=== PATIENT | female | born 1975 | race Caucasian/White ===

== ENCOUNTER 2021-01-06 18:18 | Emergency (ER) | payer OTHER, SELFPAY ==
[2021-01-06 18:25] VITALS: BP 140/88; PULSE 91; RESP 18; TEMP 36.6; O2SAT 99; BMI 30.7
--- NOTE | 2021-01-06 19:34 | ED.ANXIETY ---
HPI - Anxiety General Chief Complaint: Anxiety Stated Complaint: vomiting Time Seen by Provider: 01/06/21 19:34 Source: patient Mode of arrival: ambulatory Limitations: no limitations History of Present Illness HPI narrative: Patient has increased anxiety and stress recent break-up very anxious when she eats anything nauseated with epigastric pain with history of GERD in the past denies any urinary complaints Related Data Previous Rx's Medication Instructions Recorded ouoazsvhtf-pmbuecfniztuc-ougygwqb 1 cap PO Q6H PRN #20 cap 01/06/21 50 mg-300 mg-40 mg capsule (Fioricet) lorazepam 1 mg tablet (Ativan) 1 mg PO BEDTIME PRN #10 tab 01/06/21 omeprazole 40 mg capsule,delayed 40 mg PO DAILY #20 cap 01/06/21 release Allergies Allergy/AdvReac Type Severity Reaction Status Date / Time Penicillins [PENICILLINS] Allergy Unknown UNKNOWN Verified 01/06/21 20:07 Review of Systems Review of Systems: Yes all other systems are reviewed and are negative PMFSH Past Medical History Medical History No known health problems Social History Social History Advance Directives: No Advance Directives Information Provided: No Patient : No Physical Exam Vital Signs: Vital Signs: Last Vital Signs Temp 98 F 01/06/21 18:25 Pulse 91 01/06/21 18:25 Resp 18 01/06/21 18:25 BP 140/88 H 01/06/21 18:25 Pulse Ox 99 01/06/21 18:25 Body Mass Index 30.7 Appearance: Alert. Oriented X3. No acute distress. Anxious Eyes: No pallor or icterus ENT: Pharynx normal. Oral Mucosa moist Neck: Normal inspection. Neck supple. CVS: Normal heart rate and rhythm. Pulses normal. Respiratory: No respiratory distress. Equal air entry bilateral, Abdomen: Soft and mild epigastric tenderness. Bowel sounds are present, no mass palpable, no CVA tenderness Skin: Skin warm and dry. Normal skin color. Normal skin turgor. Extremities: No lower extremity edema. No calf tenderness Neuro: Oriented X 3. MDM - Anxiety Lab Data Attestation: I reviewed the patient's lab results. Labs: Lab Results 01/06/21 01/06/21 Range/Units 20:33 20:33 Urine Color STRAW Urine Appearance CLEAR Urine pH 6.0 (5.0-8.0) Ur Specific [place] <= 1.005 (1.005-1.025) Urine Protein NEG (NEG-TRACE) MG/DL Urine Glucose (UA) NEG (NEG) MG/DL Urine Ketones NEG (NEG) MG/DL Urine Blood NEG (NEG) Urine Nitrite NEG (NEG) Ur Leukocyte Esterase NEG (NEG) Urine Test NEGATIVE (NEGATIVE) Discharge Plan Discharge Clinical Impression: Acute anxiety Patient Disposition: Home, Self-Care Instructions: Gastroesophageal Reflux Disease (ED), Anxiety (ED) Additional Instructions: Rest at home Drink plenty of fluids Take medication for headache Prescriptions: New omeprazole 40 mg capsule,delayed release(DR/EC) 40 mg PO DAILY Qty: 20 RF: 0 lorazepam [Ativan] 1 mg tablet 1 mg PO BEDTIME PRN (Reason: anxiety) Qty: 10 RF: 0 zabeodmqnc-fhrklcusnwlpt-coco [Fioricet] 50-300-40 mg capsule 1 cap PO Q6H PRN (Reason: headache) Qty: 20 RF: 0
[2021-01-06] MEDS: Ondansetron ODT 4 MG TAB.RAPDIS TRANSLINGU (20:06)
[2021-01-06 20:41] LABS: Appearance Urine CLEAR; Color Urine STRAW; Glucose Urine UA NEG (NEG); Leukocyte Esterase Urine NEG (NEG); Nitrite Urine NEG (NEG); Specific Gravity - Urine <= 1.005 (1.005-1.025); Urine Blood NEG (NEG); Urine Ketones NEG (NEG); Urine Protein NEG (NEG-TRACE)
[2021-01-06] MEDS: Acetaminophen 325 MG TABLET 650 MG PO (20:42)
[2021-01-06 20:44] LABS: UPreg QC Valid YES; Urine Pregnancy NEGATIVE (NEGATIVE)
[2021-01-06] MEDS: LORazepam 1 MG TABLET PO (20:51)
[2021-01-06] MEDS: Omeprazole 40 MG CAPSULE.DR PO (20:51)
--- NOTE | 2021-01-06 20:52 | PC.NURSE ---
negative. ativan, omeprazole given.
[2021-01-06 20:54] VITALS: BP 114/72; PULSE 73; RESP 17; O2SAT 99
== END 2021-01-06 21:00 | disposition home or self-care (01) ==
PROVIDERS: Emergency Provider Internal Medicine; PCP Internal Medicine
DX: F41.1 Generalized anxiety disorder (principal); F43.0 Acute stress reaction; R10.13 Epigastric pain; Z79.899 Other long term (current) drug therapy
CPT/HCPCS: 81003; 81025; 99283; 99284